=== PATIENT | male | born 1965 | race Caucasian/White ===

== ENCOUNTER 2024-05-07 17:31 | Emergency (ER) | payer SELFPAY ==
[2024-05-07] MEDS: traMADol 50 MG Tab PO ONE (18:02)
[2024-05-07] MEDS: Ibuprofen 600 MG Tab PO ONE (18:02)
== END 2024-05-07 19:25 | disposition left against medical advice (07) ==
LOC: MW.ED 17:31
DX: M25.511 Pain in right shoulder (principal); M25.551 Pain in right hip; I10 Essential (primary) hypertension; E11.9 Type 2 diabetes mellitus without complications; Z79.899 Other long term (current) drug therapy; Z88.8 Allergy status to other drugs, medicaments and biological substances; Z75.8 Other problems related to medical facilities and other health care; W01.0XXA Fall on same level from slipping, tripping and stumbling without subsequent striking against object, initial encounter
CPT/HCPCS: 99283; A9270